=== PATIENT | male | born 1970 | race Caucasian/White ===

== ENCOUNTER 2018-02-08 09:22 | Observation (INO) | payer OTHER ==
[~2018-02-08] VITALS: Ht 172.7 cm; Wt 90.7 kg
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
[2018-02-08 10:25] LABS: ABSOLUTE BASOPHIL COUNT 0 /CUMM (0.0-0.2); ABSOLUTE EOSINOPHIL COUNT 0 /CUMM (0.0-0.7); ABSOLUTE GRANULOCYTE CT 17.9 /CUMM (1.4-6.5); ABSOLUTE LYMPH COUNT 0.8 /CUMM (1.2-3.4); ABSOLUTE MONOCYTE COUNT 0.6 /CUMM (0.10-0.60); BASOPHIL % 0.1 % (0.0-2.0); EOSINOPHIL % 0.1 % (0-5); GRANULOCYTE % 92.3 % (42.2-75.2); HEMATOCRIT 43.1 % (42-52); MEAN CORPUSCULAR HGB 29.6 PG (27.0-31.0); MEAN CORPUSCULAR HGB CONC 33.8 G/DL (33.0-37.0); MEAN CORPUSCULAR VOLUME 87.5 FL (80.0-94.0); MEAN PLATELET VOLUME 9.6 FL (7.4-10.4); PLATELET COUNT 287 /CUMM (130-400); RBC DISTRIBUTION WIDTH 12.9 % (11.5-14.5); RED BLOOD CELL CT 4.92 /CUMM (4.70-6.10); WHITE BLOOD CELL COUNT 19.4 /CUMM (4.8-10.8)
[2018-02-08 10:33] LABS: PT 12.7 SEC (9.4-12.5); PTT 23 SEC (25-37)
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
--- NOTE | 2018-02-08 18:03 | Operative Report ---
Operative/Inv Procedure Report Surgery Date: 02/08/18 Name of Procedure: Laparoscopic Cholecystectomy Pre-Operative Diagnosis: Acute cholecystitis Post-Operative Diagnosis: Acute gangrenous cholecystitis Estimated Blood Loss: less than 50ml Surgeon/Deputy Attorney General: Trung Toney Anesthesia: general endotracheal tube IV Fluids: 1500 cc Drains: None Specimens: Gallbladder Complications: None Condition: Stable Operative Indication: This is a 47-year-old male that presented to the emergency room with abdominal pain. After appropriate workup was completed the patient was diagnosed with acute cholecystitis. A laparoscopic possible open cholecystectomy was discussed in detail. All risks including but not limited to bleeding, infection, bile leak, and injury to surrounding ducts/bowel were discussed in detail. The patient understood everything and decided to proceed. Operative/Procedure Note Note: The patient was brought to the operating room and placed on the operating room table in supine position. Venodyne stockings were placed and adequate general endotracheal anesthesia was obtained. The patient was prepped and draped in standard surgical fashion. We began the procedure by making a 2 cm transverse incision in the infraumbilical crease. The incision was carried down to the fascia, once the fascia was clearly visualized it was picked up between 2 lilli clamps. The fascia was divided in the midline and once we entered the peritoneum 2 stay 0 Vicryl sutures were placed on each side. A 12 mm blunt port was inserted and the abdominal cavity was insufflated to 15 mmHg. A 10 mm 30 laparoscope was introduced and upon initial examination no obvious gross pathology was seen. We did note a markedly distended gallbladder in the right upper quadrant with a very indurated/necrotic wall. Accessory trocars were placed, all 5 mm, one in the epigastrium and 2 in the right upper quadrant (one in the midclavicular line and one in the anterior axillary line, both 2 fingerbreadths below the costal margin). The gallbladder was grasped with the lateralmost trocar and retracted up over the liver. Using the other 2 accessory trochars the infundibulum was grasped and the peritoneum was lysed using blunt dissection and using hook electrocautery. The gallbladder had a large amount of dense adhesions around the infundibulum and careful dissection with hook electrocautery and blunt was done to identify the structures. The cystic duct and cystic artery were visualized. The common bile duct was visualized and it was away from our area of dissection. The cystic duct and artery were skeletonized and divided between clips, 3 clips to stay and one clip on the gallbladder side for the duct and 2 clips to stay and one clip on the gallbladder side for the artery. The gallbladder was dissected off the liver bed using hook electrocautery maintaining hemostasis. Gallbladder did have a very thick wall and necrotic in parts. Prior to completely removing the gallbladder off the liver bed we examined the area of dissection no obvious bile leak or bleeding was noted, the clips appeared to be in good position. The gallbladder was completely detached from the liver bed. We switched to a 5 mm laparoscope and a 10 mm Endobag was introduced through the umbilical trocar site. The gallbladder was placed in the bag and removed through the umbilicus. The abdomen was reinsufflated. We switched back to a 10 mm laparoscope and examined our area of dissection. No obvious bile leak or bleeding was noted. The right upper quadrant was irrigated until clear. All ports were removed under direct visualization, no obvious bleeding was noted. The umbilical trocar site was closed using 0 Vicryl suture. The skin was closed using 4-0 Monocryl. Steri-Strips and dressings were placed. The patient was successfully extubated and transferred to the recovery room in stable condition. The patient tolerated the procedure well with no complications. Findings: Markedly distended/thick gallbladder, multiple small and large stones, necrotic gallbladder wall
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
--- NOTE | 2018-02-08 18:53 | Patient Discharge Instructions ---
Discharge Instructions General Discharge Information You were seen/treated for: cholecystitis You had these procedures: lap cholecystectomy Watch for these problems: temp>101, increased redness or drainage of wound Do not soak the wound: Yes No bath, but you may shower: Yes Diet Continue normal diet: Yes Activity Activity Self Limited: Yes Pounds, do NOT lift more than: 10 Acute Coronary Syndrome Inclusion Criteria At DC or during hospital stay patient has or had the following: Discharge Core Measures Meds if any: Prescribed or Continued at Discharge Meds if any: NOT Prescribed or Continued at Discharge Congestive Heart Failure Inclusion Criteria At DC or during hospital stay patient has or had the following: Discharge Core Measures Meds if any: Prescribed or Continued at Discharge Meds if any: NOT Prescribed or Continued at Discharge Cerebrovascular accident Inclusion Criteria At DC or during hospital stay patient has or had the following: CVA/TIA Diagnosis No Discharge Core Measures Meds if any: Prescribed or Continued at Discharge Meds if any: NOT Prescribed or Continued at Discharge Venous thromboembolism Discharge Core Measures - Per Current guidelines, there needs to be overlap - treatment for the first 5 days of Warfarin therapy. - If discharged on Warfarin prior to 5 days of - overlap therapy, the patient will need to be - assessed for post discharge needs including - *Post discharge parental anticoagulation - *Warfarin and/or parental anticoagulation education - *Follow up date to check INR post discharge Meds if any: Prescribed or Continued at Discharge Note: Overlap Therapy is Warfarin and Anticoagulant Meds if any: NOT Prescribed or Continued at Discharge
[2018-02-08 19:56] VITALS: BP 178/90
[2018-02-08 21:18] VITALS: BP 166/93
--- NOTE | 2018-02-09 00:13 | PN- General Surgery ---
Subjective Subjective: Post op check Awake, and alert post op No complaints at this time - feels much better than pre op Denies nausea, pain is well controlled Objective Vital Signs and I&Os Vital Signs Date Time Temp Pulse Resp B/P B/P Pulse O2 O2 Flow FiO2 Mean Ox Delivery Rate 02/08 2118 98.6 106 20 166/93 97 02/08 1956 98.0 92 16 178/90 98 Room Air 02/08 1545 98.2 116 22 198/98 98 02/08 1435 97.3 94 18 158/78 97 Room Air 02/08 1022 Room Air 02/08 0929 96.9 111 18 183/96 96 Room Air Intake & Output 02/09 0802/09 0000 02/08 1600 02/08 1600 Intake Total 390 1000 Output Total 450 Balance -60 1000 Intake, IV 150 1000 Intake, Oral 240 Output, Urine 450 Patient 200 lb 180 lb Weight Weight Reported by Patient Measurement Method Physical Exam: vss, afebrile General: alert and oriented times three Chest: clear anteriorly bilaterally, RRR Abd: soft, good bs Ext: warm, no edema Wds: dressed, dry Assessment/Plan Assessment/Plan 47yo male s/p lap robert - necrotic gallbladder keep in observation overnight - plan for antibiotics for 24 hours and IVF clear liquids - advance to regular in the morning dc planning in am fu labs in am Core Measures Venous Thromboembolism VTE Risk Factors Surgery No Mechanical VTE Prophylaxis d/t N/A MechProphylax Ordered No VTE Pharm Prophylaxis d/t NA PharmProphylax ordered
[2018-02-09 06:44] VITALS: BP 160/92
--- NOTE | 2018-02-09 08:56 | PN- General Surgery ---
Subjective Subjective: PATIENT LYING IN BED COMPLAINS OF GENERALIZED ABDOMINAL PAIN. NO NAUSEA OR VOMITING. ABDOMEN QUIET Review of Systems Constitutional: Denies: fever. Cardiovascular: Denies: palpitations, peripheral edema. Respiratory: Denies: cough, short of breath. Gastrointestinal: Reports: abdominal pain, bloating, distention. Denies: nausea, vomiting. Objective Vital Signs and I&Os Vital Signs Date Time Temp Pulse Resp B/P B/P Pulse O2 O2 Flow FiO2 Mean Ox Delivery Rate 02/09 0644 98.0 88 18 160/92 94 02/08 2118 98.6 106 20 166/93 97 02/08 1956 98.0 92 16 178/90 98 Room Air 02/08 1545 98.2 116 22 198/98 98 02/08 1435 97.3 94 18 158/78 97 Room Air 02/08 1022 Room Air 02/08 0929 96.9 111 18 183/96 96 Room Air Intake & Output 02/09 1600 02/09 0800 02/09 0000 02/08 1600 02/08 0800 02/08 0000 Intake Total 9602 111 7598 Output Total 800 450 Balance 280 -60 1000 Intake, IV 817 865 0767 Intake, Oral 480 240 Output, Urine 800 450 Patient 200 lb 180 lb Weight Weight Reported by Patient Measurement Method Physical Exam: LABS PENDING THIS MORNING PE-ALERT AND ORIENTED, COMFORTABLE CHEST -CTA SYMMETRIC, NO RALES RONCHI OR WHEEZE HEART -RRR WITHOUT MRG ABD- ROUNDED WITH DISTENTION, PORTAL SITES CDI, GENERALIZED SORENESS, BS PRESENT BILATERAL LOWER EXTREMTITES SOFT WITHOUT EDEMA Assessment/Plan Assessment/Plan POD1 LAP CCHOLE ADVANCE DIET, OOB PAIN CONTROL D/C HOME THIS AFTERNOON Core Measures Venous Thromboembolism VTE Risk Factors Surgery No Mechanical VTE Prophylaxis d/t N/A MechProphylax Ordered No VTE Pharm Prophylaxis d/t NA PharmProphylax ordered
[2018-02-09] MEDS ORDERED: PERCOCET 5-3251 EACH PO (08:58)
[2018-02-09 09:26] LABS: ABSOLUTE BASOPHIL COUNT 0 /CUMM (0.0-0.2); ABSOLUTE EOSINOPHIL COUNT 0 /CUMM (0.0-0.7); ABSOLUTE MONOCYTE COUNT 1.3 /CUMM (0.10-0.60); BASOPHIL % 0.1 % (0.0-2.0); EOSINOPHIL % 0.1 % (0-5)
[2018-02-09 09:42] LABS: ABSOLUTE GRANULOCYTE CT 18.2 /CUMM (1.4-6.5); ABSOLUTE LYMPH COUNT 1.3 /CUMM (1.2-3.4); MEAN CORPUSCULAR HGB CONC 33.8 G/DL (33.0-37.0); MEAN CORPUSCULAR VOLUME 88.7 FL (80.0-94.0); MEAN PLATELET VOLUME 10.5 FL (7.4-10.4); PLATELET COUNT 230 /CUMM (130-400); RBC DISTRIBUTION WIDTH 13.1 % (11.5-14.5); RED BLOOD CELL CT 4.24 /CUMM (4.70-6.10); WHITE BLOOD CELL COUNT 20.9 /CUMM (4.8-10.8)
[2018-02-09 09:46] LABS: HEMATOCRIT 37.6 % (42-52)
[2018-02-09 10:33] LABS: GRANULOCYTE % 87.3 % (42.2-75.2)
[2018-02-09 11:00] VITALS: BP 140/72
--- NOTE | 2018-02-09 13:04 | Surg Short-stay <48hrs Dis Sum ---
Visit Information Visit Dates Admission Date: 02/08/18 Discharge Date: 02/09/2018 Surgical Short Stay DC Summary Admission Diagnosis: acute cholecystitis Final Diagnosis: same Procedure(s): laprascopic cholecystectomy Summary/Significant Findings: 47 y/o male was diagnosed with acute cholecystitis on 02/08 and went to the OR for Lap robert, He tolerated the procedure well and recovered on the floor. His vitals remained stable and pain controlled. He had a small increase in WBC caount and LFTs. Thsi was discussed with Dr. Colbert prior to discharge. He is discharged in stable condition Condition at Discharge: stable Discharge Disposition: home or self care Discharge instructions provided to patient/family: Yes Post discharge follow-up plan: follow-up 2 weeks Copies to: Trung Gudino DO
== END 2018-02-09 13:37 ==
LOC: ERH 09:22 → ER-OR 09:41 → ERH 09:41 → PACUH 18:33 → ENRESERV 19:01 → ENTRNSPT 19:24 → EDTRNSPTSTS 19:27 → 2NB 19:39 → CMPTRNSPT 19:57 → ENPENDDIS 02-09 13:22 → 2NB 02-09 13:37
PROVIDERS: Emergency Medicine; Physician Assistant Surgical
DX: K80.00 Calculus of gallbladder with acute cholecystitis without obstruction (principal); F17.200 Nicotine dependence, unspecified, uncomplicated; M19.90 Unspecified osteoarthritis, unspecified site
CPT/HCPCS: 1255; 6040; 36592; 74176; 74177; 81003; 82436; 87040; 96372; 96374; 96375; 96376; C9399; G0378; J0131; J0690; J1644; J2405; J7042